=== PATIENT | female | born 1990 | race Caucasian/White ===

== ENCOUNTER 2017-12-01 14:48 | Emergency (ER) | payer OTHER ==
[2017-12-01] MEDS: predniSONE 20 MG TAB PO (16:20)
== END 2017-12-01 17:22 | disposition home or self-care (01) ==
LOC: FTE 14:48
DX: J01.90 Acute sinusitis, unspecified (principal)
CPT/HCPCS: 99284; J7512

== ENCOUNTER 2018-01-05 09:30 | Inpatient (IN) | payer OTHER ==
[2018-01-05] MEDS: BUPIVACAINE 0.25% (MPF) 30 ML INJ INJ
[2018-01-05] MEDS: SODIUM CHLORIDE 0.9% 1L IRRIG IRR
[~2018-01-05 09:30] MED LIST: CEFAZOLIN 1 GM INJ
[2018-01-05] MEDS: ONDANSETRON 4 MG INJ IV ×2 (10:34→19:11)
[2018-01-05] MEDS: morphine 4 MG/ML VIAL IV (10:35)
[2018-01-05 10:42] LABS: ADD MAN DIFF? NO
[2018-01-05 10:44] LABS: BASOPHIL # 0.1 10^3/ul (0.0-0.1); BASOPHILS % 0.5 % (0.0-2.0); EOSINOPHILS # 0.2 10^3/ul (0.0-0.5); EOSINOPHILS % 1.4 % (0.0-7.0); HEMOGLOBIN 13.3 g/dl (12.0-16.0); LYMPHOCYTES # 2.6 10^3/ul (0.8-2.9); LYMPHOCYTES % 24.7 % (15.0-51.0); MEAN CORPUSCULAR HEMOGLOBIN 27.9 pg (29.0-33.0); MEAN CORPUSCULAR HGB CONC 33.3 g/dl (32.0-37.0); MEAN PLATELET VOLUME 9.1 fl (7.4-10.4); MONOCYTE # 0.6 10^3/ul (0.3-0.9); MONOCYTES % 5.4 % (0.0-11.0); NEUTROPHIL # 7.1 10^3/ul (1.6-7.5); NEUTROPHILS % 67.5 % (39.0-77.0); PLATELET COUNT 423 10^3/UL (140-415); RED BLOOD COUNT 4.76 10^6/ul (4.20-5.40); RED CELL DISTRIBUTION WIDTH 13.2 % (11.5-14.5)
[2018-01-05 10:44] LABS: WHITE BLOOD COUNT 10.5 10^3/ul (4.8-10.8)
[2018-01-05 10:47] LABS: ADD UMIC YES; UR ASCORBIC ACID NEGATIVE (NEGATIVE); UR BILIRUBIN (Dip) NEGATIVE (NEGATIVE); UR BLOOD (Dip) 2+ mg/dL (NEGATIVE); UR CLARITY CLOUDY (CLEAR); UR COLOR YELLOW (YELLOW); UR GLUCOSE (Dip) NEGATIVE (NEGATIVE); UR KETONES (Dip) NEGATIVE (NEGATIVE); UR LEUKOCYTE ESTERASE (Dip) TRACE Leu/ul (NEGATIVE); UR MUCUS FEW /HPF (NONE SEEN); UR NITRITE (Dip) NEGATIVE (NEGATIVE); UR RBC 19 /HPF (0-5); UR SPECIFIC GRAVITY (Dip) 1.021 (1.003-1.030); UR SQUAMOUS EPITHELIAL CELL FEW /HPF (FEW); UR TOTAL PROTEIN (Dip) NEGATIVE (NEGATIVE); UR UROBILINOGEN (Dip) NEGATIVE (NEGATIVE); UR WBC 3 /HPF (0-5)
[2018-01-05 11:06] LABS: ALANINE AMINOTRANSFERASE 22 IU/L (13-69); ALBUMIN 4.8 g/dl (3.3-4.9); ALBUMIN/GLOBULIN RATIO 1.37; ALKALINE PHOSPHATASE 69 IU/L (42-121); ANION GAP 18 (8-16); ASPARTATE AMINO TRANSFERASE 20 IU/L (15-46); BILIRUBIN,INDIRECT 0.4 mg/dl (0-1.1); BILIRUBIN,TOTAL 0.4 mg/dl (0.2-1.3); BLOOD UREA NITROGEN 11 mg/dl (7-20); CALCIUM 9.8 mg/dl (8.4-10.2); CARBON DIOXIDE 31 mmol/L (21-31); CHLORIDE 101 mmol/L (97-110); CREATININE 0.65 mg/dl (0.44-1.00); GLUCOSE 92 mg/dl (70-220); LIPASE 75 U/L (23-300); POTASSIUM 3.6 mmol/L (3.5-5.1); SODIUM 146 mmol/L (135-144); TOTAL PROTEIN 8.3 g/dl (6.1-8.1)
[2018-01-05] MEDS: SOD CHLORIDE 0.9% 1,000 ML IV ×3 (12:37→21:58)
[2018-01-05] MEDS ORDERED: ONDANSETRON 4 MG INJ IV ×2 (13:30→14:30)
[2018-01-05] MEDS ORDERED: ACETAMINOPHEN 325 MG TAB PO ×2 (13:30→14:30)
[2018-01-05] MEDS ORDERED: NACL 0.9% 3 ML SYG IV (14:30)
[2018-01-05] MEDS: PIPER-TAZO 3.375 GM IV (PMX) 100 ML IVPB ×2 (15:06→20:00)
[2018-01-05] MEDS ORDERED: LIDOCAINE 1%/EPI 30 ML INJ (17:03)
[2018-01-05] MEDS ORDERED: BUPIVACAINE 0.25% (MPF) 30 ML INJ (17:03)
[2018-01-05] MEDS ORDERED: MIDAZOLAM 1 MG/ML 2 ML INJ (17:50)
[2018-01-05] MEDS ORDERED: PHENYLephrine (100 MCG/ML) 5ML SYG (18:03)
[2018-01-05] MEDS ORDERED: ONDANSETRON 4 MG INJ (18:35)
[2018-01-05] MEDS ORDERED: GLYCOPYRROLATE 0.4 MG INJ (18:35)
[2018-01-05] MEDS ORDERED: PROPOFOL 20 ML (18:35)
[2018-01-05] MEDS ORDERED: LIDOCAINE 2% (SDV) 5 ML INJ (18:35)
[2018-01-05] MEDS ORDERED: NEOSTIGMINE 3 MG/3 ML SYRINGE (18:35)
[2018-01-05] MEDS ORDERED: ROCURONIUM 50 MG INJ (18:35)
[2018-01-05] MEDS ORDERED: FENTAnyl 50 MCG/ML VIAL ×2 (18:42→19:02)
[2018-01-05] MEDS: FENTAnyl 50 MCG/ML VIAL IV (19:12)
[2018-01-05] MEDS ORDERED: DIPHENHYDRAMINE 50 MG INJ IV (19:30)
[2018-01-05] MEDS ORDERED: MEPERIDINE 25 MG INJ IV (19:30)
[2018-01-05] MEDS ORDERED: HYDROmorphONE (0.2 MG/ML) 10ML SYG IV ×2 (19:30)
[2018-01-05] MEDS ORDERED: METOCLOPRAMIDE 10 MG INJ IV (19:30)
[2018-01-05] MEDS: FAMOTIDINE 20 MG INJ IV (21:52)
[2018-01-05] MEDS: CEFAZOLIN 1 GM/50 ML (PMX) 50 ML IVPB (21:52)
[2018-01-06] MEDS: PIPER-TAZO 3.375 GM IV (PMX) 100 ML IVPB ×3 (00:17→11:36)
[2018-01-06 05:13] LABS: ADD MAN DIFF? NO
[2018-01-06 05:15] LABS: WHITE BLOOD COUNT 10.2 10^3/ul (4.8-10.8)
[2018-01-06 05:15] LABS: BASOPHILS % 0.4 % (0.0-2.0); EOSINOPHILS # 0.1 10^3/ul (0.0-0.5); EOSINOPHILS % 0.6 % (0.0-7.0); HEMOGLOBIN 10.7 g/dl (12.0-16.0); LYMPHOCYTES # 2.2 10^3/ul (0.8-2.9); LYMPHOCYTES % 21.6 % (15.0-51.0); MEAN CORPUSCULAR HEMOGLOBIN 27.5 pg (29.0-33.0); MEAN CORPUSCULAR HGB CONC 32.4 g/dl (32.0-37.0); MEAN CORPUSCULAR VOLUME 84.8 fl (82.0-101.0); MEAN PLATELET VOLUME 9.6 fl (7.4-10.4); MONOCYTE # 0.7 10^3/ul (0.3-0.9); MONOCYTES % 6.7 % (0.0-11.0); NEUTROPHIL # 7.2 10^3/ul (1.6-7.5); NEUTROPHILS % 70.3 % (39.0-77.0); PLATELET COUNT 341 10^3/UL (140-415); RED BLOOD COUNT 3.89 10^6/ul (4.20-5.40); RED CELL DISTRIBUTION WIDTH 13.5 % (11.5-14.5)
[2018-01-06 05:27] LABS: HEMOGLOBIN A1C 5.6 % (0-5.9)
[2018-01-06 05:49] LABS: ALANINE AMINOTRANSFERASE 18 IU/L (13-69); ALBUMIN 3.4 g/dl (3.3-4.9); ALBUMIN/GLOBULIN RATIO 1.13; ALKALINE PHOSPHATASE 52 IU/L (42-121); ANION GAP 13 (8-16); ASPARTATE AMINO TRANSFERASE 18 IU/L (15-46); BILIRUBIN,INDIRECT 0.3 mg/dl (0-1.1); BILIRUBIN,TOTAL 0.3 mg/dl (0.2-1.3); BLOOD UREA NITROGEN 7 mg/dl (7-20); CARBON DIOXIDE 27 mmol/L (21-31); CHLORIDE 106 mmol/L (97-110); CHOL/HDL RATIO 3.6 RATIO; CHOLESTEROL 144 mg/dl (100-200); GLUCOSE 84 mg/dl (70-220); HDL CHOLESTEROL 40 mg/dl (33-83); LDL CHOLESTEROL,CALCULATED 89 mg/dl; MAGNESIUM 1.6 mg/dl (1.7-2.5); PHOSPHORUS 4.2 mg/dl (2.5-4.9); POTASSIUM 3.9 mmol/L (3.5-5.1); SODIUM 142 mmol/L (135-144); TOTAL PROTEIN 6.4 g/dl (6.1-8.1); TRIGLYCERIDES 76 mg/dl (0-149)
[2018-01-06 06:07] LABS: THYROID STIMULATING HORMONE 0.835 MIU/L (0.465-4.680)
[2018-01-06] MEDS: SOD CHLORIDE 0.9% 1,000 ML IV (06:18)
[2018-01-06] MEDS: morphine 2 MG INJ IV (06:36)
[2018-01-06] MEDS: FAMOTIDINE 20 MG INJ IV (08:37)
== END 2018-01-06 12:45 | disposition home or self-care (01) | DRG 342 ==
LOC: FTE 09:30 → MS1 17:51 → REC 13:30 → MS1 20:10
PROC: 0DTJ4ZZ Resection of Appendix, Percutaneous Endoscopic Approach (ICD-10-PCS; principal; 2018-01-05 17:00)
DX: K35.80 Unspecified acute appendicitis (principal); E87.0 Hyperosmolality and hypernatremia; E86.0 Dehydration
CPT/HCPCS: 36415; 74176; 80053; 80061; 81001; 83036; 83690; 83735; 84100; 84443; 84703; 85025; 88304; 96361; 96365; 96375; 99285-25

== ENCOUNTER 2018-02-24 22:47 | Emergency (ER) | payer SELFPAY, OTHER | END 2018-02-25 02:46 | disposition left against medical advice (07) | LOC: FTE 22:47 | DX: Z53.21 Procedure and treatment not carried out due to patient leaving prior to being seen by health care provider (principal) ==